=== PATIENT | female | born 1945 ===

== ENCOUNTER 2025-02-21 06:30 | Day surgery (SDC) | payer OTHER, SELFPAY | END 2025-02-21 09:21 | disposition home or self-care (01) | LOC: GI 06:30 | PROVIDERS: ATTENDING PHYSICIAN Internal Medicine Gastroenterology | DX: Z12.11 Encounter for screening for malignant neoplasm of colon (principal); D17.79 Benign lipomatous neoplasm of other sites; K57.30 Diverticulosis of large intestine without perforation or abscess without bleeding; Z86.0101 Personal history of adenomatous and serrated colon polyps | CPT/HCPCS: G0105 ==

== ENCOUNTER 2025-06-20 06:07 | Day surgery (SDC) | payer OTHER, SELFPAY ==
[2025-06-20] VITALS (7 sets, daily range): BP systolic 45–151; BP diastolic 36–98; BMI 31.2
[2025-06-20 10:14] LABS: Glucose - Point of Care 106 mg/dl (70-99)
== END 2025-06-20 13:07 | disposition home or self-care (01) ==
LOC: GI 06:07
PROVIDERS: ATTENDING PHYSICIAN Internal Medicine Gastroenterology
DX: C49.A2 Gastrointestinal stromal tumor of stomach (principal); K86.9 Disease of pancreas, unspecified
CPT/HCPCS: 43242; 82962; 88173; 88305; 88341; 88342